=== PATIENT | male | born 1995 | race Hispanic/Latino ===

== ENCOUNTER 2018-04-22 20:23 | Emergency (ER) | payer OTHER, SELFPAY ==
--- NOTE | 2018-04-22 21:28 | RAD ---
TWO VIEWS CHEST: 04/22/18 HISTORY: Cough for four days. PA and lateral views of the chest is obtained. The lungs are well aerated. No evidence of active intr athoracic disease seen. No evidence of effusions, pneumonia or pneumothorax seen. IMPRESSION: Normal two views chest. POS: [facility]
[2018-04-22] MEDS ORDERED: Ketorolac Tromethamine 30 MG/ML VIAL ONE (21:33)
[2018-04-22 21:40] LABS: #Basophils 0.1 thou/uL (0.0-0.2); #Eosinphils 0.1 thou/uL (0.0-0.7); #Lymphocytes 3.4 thou/uL (1.20-3.40); #Monocytes 0.7 thou/uL (0.11-0.59); #Neutrophils 2.7 thou/uL (1.40-6.50); %Eosinophils 1.6 % (0.0-10.0); %Lymphocytes 48.8 % (21.0-51.0); %Monocytes 9.7 % (0.0-10.0); %Neutrophils 38.9 % (42.0-75.0); Hemoglobin 16.6 g/dL (14.0-18.0); Mean Corpuscular HGB CONC 33.3 g/dL (32.0-36.0); Mean Corpuscular Hemoglobin 29.3 pg (27.0-31.0); Mean Corpuscular Volume 88.2 fL (78.0-98.0); Mean Platelet Volume 9.1 fL (7.4-10.4); Platelet Count 220 thou/uL (130-400); Red Blood Cell (RBC) Count 5.66 mill/uL (4.70-6.10)
[2018-04-22 21:59] LABS: ALT (SGPT) 11 U/L (8-55); AST (SGOT) 19 U/L (5-34); Albumin 4.4 g/dL (3.5-5.0); Alkaline Phosphatase 85 U/L (40-150); Anion Gap 11 mmol/L (10-20); BUN (Urea Nitrogen) 12 mg/dL (8.9-20.6); Bilirubin, Total 0.6 mg/dL (0.2-1.2); Calc. Creatinine Clearance 0 mL/min (70-130); Calcium 9.4 mg/dL (7.8-10.44); Carbon Dioxide 28 mmol/L (22-29); Chloride 104 mmol/L (98-107); Estimated GFR-MDRD Greater than 90; Globulin 3.1 g/dL (2.4-3.5); Glucose 97 mg/dL (70-105); Potassium 3.7 mmol/L (3.5-5.1); Protein, Total 7.5 g/dL (6.0-8.3); Sodium 139 mmol/L (136-145)
[2018-04-22 22:04] LABS: CKMB 1.7 ng/mL (0-6.6); Troponin I Less than 0.010 ng/mL (< 0.028)
== END 2018-04-22 22:35 | disposition home or self-care (01) ==
LOC: ERS 20:23
DX: R07.89 Other chest pain (principal)
CPT/HCPCS: 71046; 80053; 82553; 84484; 85025; 93005; 96361; 96374; J1885

== ENCOUNTER 2018-06-22 19:53 | Emergency (ER) | payer SELFPAY ==
[2018-06-22] MEDS ORDERED: Ondansetron ODT 4 MG TAB ONE (20:29)
--- NOTE | 2018-06-22 20:29 | RAD ---
RADIOGRAPH CHEST 2 VIEWS: 06/22/18 HISTORY: 22-year-old male with chest pain. FINDINGS: The lungs are clear. The cardiomediastinal silhouette and hilar shadows are normal. There is no ple ural effusion. The osseous structures appear normal. There is no pneumothorax. IMPRESSION: Normal. [place] [] POS: [facility]
[2018-06-22 20:43] LABS: #Lymphocytes 2.7 thou/uL (1.20-3.40); #Monocytes 0.5 thou/uL (0.11-0.59); #Neutrophils 3.4 thou/uL (1.40-6.50); %Basophils 0.5 % (0.0-1.0); %Eosinophils 0.6 % (0.0-10.0); %Lymphocytes 40.5 % (21.0-51.0); %Neutrophils 51.5 % (42.0-75.0); Hemoglobin 16.3 g/dL (14.0-18.0); Mean Corpuscular HGB CONC 34.4 g/dL (32.0-36.0); Mean Corpuscular Hemoglobin 29.9 pg (27.0-31.0); Mean Corpuscular Volume 86.9 fL (78.0-98.0); Mean Platelet Volume 9.1 fL (7.4-10.4); Platelet Count 227 thou/uL (130-400); Red Blood Cell (RBC) Count 5.45 mill/uL (4.70-6.10); White Blood Cell (WBC) Count 6.7 thou/uL (4.8-10.8)
[2018-06-22 21:01] LABS: ALT (SGPT) 11 U/L (8-55); AST (SGOT) 15 U/L (5-34); Albumin 4.3 g/dL (3.5-5.0); Alkaline Phosphatase 77 U/L (40-150); Anion Gap 13 mmol/L (10-20); BUN (Urea Nitrogen) 10 mg/dL (8.9-20.6); Bilirubin, Total 0.6 mg/dL (0.2-1.2); CK (CPK) 65 U/L (30-200); Calc. Creatinine Clearance 0 mL/min (70-130); Calcium 9.6 mg/dL (7.8-10.44); Carbon Dioxide 26 mmol/L (22-29); Chloride 103 mmol/L (98-107); Estimated GFR-MDRD 82; Globulin 2.8 g/dL (2.4-3.5); Glucose 94 mg/dL (70-105); Potassium 3.5 mmol/L (3.5-5.1); Protein, Total 7.1 g/dL (6.0-8.3); Sodium 138 mmol/L (136-145)
--- NOTE | 2018-06-26 10:48 | EKG ---
Test Reason : Blood Pressure : / mmHG Vent. Rate : 070 BPM Atrial Rate : 070 BPM P-R Int : 134 ms QRS Dur : 084 ms QT Int : 352 ms P-R-T Axes : 024 037 010 degrees QTc Int : 380 ms Normal sinus rhythm Nonspecific ST and T wave abnormality Abnormal ECG Confirmed by FIONA JOHANSEN DO ([id number]), marketing editor DANIEL DAWN ([id number] on 06/26/2018 10:47:59 AM Referred By: Confirmed By:FIONA JOHANSEN DO
== END 2018-06-22 22:26 | disposition home or self-care (01) ==
LOC: ERS 19:53
DX: R07.89 Other chest pain (principal)
CPT/HCPCS: 36415; 71046; 80053; 82550; 84484; 85025; 93005; Q0162

== ENCOUNTER 2018-09-22 01:53 | Emergency (ER) | payer SELFPAY ==
[2018-09-22] MEDS ORDERED: Ibuprofen 800 MG TAB ONE (02:03)
[2018-09-22] MEDS ORDERED: Ondansetron ODT 4 MG TAB ONE (03:12)
--- NOTE | 2018-09-22 07:33 | RAD ---
EXAM: Chest 2 views: HISTORY: Chest pain for 3 days COMPARISON: None. FINDINGS: There is a normal-sized cardiomediastinal silhouette. There is no evidence of consolidation, mass, or pleural effusion. The bones are unremarkable. IMPRESSION: No evidence of acute cardiopulmonary disease
== END 2018-09-22 03:20 | disposition home or self-care (01) ==
LOC: ERS 01:53
DX: R07.89 Other chest pain (principal)
CPT/HCPCS: 71046; 93005; Q0162

== ENCOUNTER 2019-06-22 13:26 | Emergency (ER) | payer SELFPAY ==
--- NOTE | 2019-06-22 13:52 | RAD ---
EXAM: 3 views of the left ankle HISTORY: Ankle pain after nail gun injury COMPARISON: None FINDINGS: 3 views of the left ankle shows no evidence of acute fracture or dislocation. No soft tissu e swelling is seen. No degenerative changes are present. No radiopaque foreign body is seen. IMPRESSION: No evidence of acute osseous abnormality.
[2019-06-22] MEDS ORDERED: Bacitracin 1 PK ONE (16:29)
[2019-06-22] MEDS ORDERED: Adacel (T-DAP) 0.5 ML SYRINGE ONE (16:29)
== END 2019-06-22 16:45 | disposition home or self-care (01) ==
LOC: ERS 13:26
DX: S91.032A Puncture wound without foreign body, left ankle, initial encounter (principal); W29.4XXA Contact with nail gun, initial encounter
CPT/HCPCS: 90471; 90715